=== PATIENT | female | born 1965 | race Hispanic/Latino ===

== ENCOUNTER 2017-06-21 02:11 | Observation (INO) | payer BC ==
[~2017-06-21] VITALS: Ht 157.5 cm; Wt 73.3 kg
[~2017-06-21 02:11] MED LIST: CALC-1038 PO; CEPH500B PO; TYL3 PO
[2017-06-21 03:19] LABS: BASOPHILS % (AUTO) 0.5 % (0.0-5.0); EOSINOPHILS % (AUTO) 1.2 % (0.0-8.0); LYMPHOCYTES % (AUTO) 17.5 % (21.0-51.0); MEAN CORPUSCULAR HEMOGLOBIN 27.1 pg (27.0-33.0); MEAN CORPUSCULAR HGB CONC 33.2 g/dL (32.0-36.0); MEAN CORPUSCULAR VOLUME 81.6 fL (79-99); MONOCYTES % (AUTO) 4.6 % (3.0-13.0); NEUTROPHILS % (AUTO) 76.2 % (40.0-77.0); PLATELET COUNT (AUTO) 240 K/uL (130-400); RED BLOOD CELL COUNT(AUTO) 4.78 MIL/uL (4.00-5.50); RED CELL DISTRIBUTION WIDTH 14.4 % (11.0-15.5); WHITE BLOOD COUNT (AUTO) 11.7 K/uL (4.8-10.8)
[2017-06-21 03:23] LABS: APPEARANCE,URINE Clear (CLEAR); BILIRUBIN,URINE Negative (NEGATIVE); COLOR,URINE Yellow (YELLOW); GLUCOSE, URINE (UA) Negative (NEGATIVE); KETONES,URINE Negative (NEGATIVE); LEUKOCYTE ESTERASE ,URINE Negative (NEGATIVE); NITRATE,URINE Negative (NEGATIVE); OCCULT BLOOD,URINE Trace (NEGATIVE); PROTEIN,URINE Negative (NEGATIVE); UROBILINOGEN,URINE 0.2 mg/dL (0.2-1.0)
[2017-06-21 03:25] LABS: CREATININE 0.7 mg/dL (0.5-1.5); POTASSIUM 3.9 mmol/L (3.5-5.1)
[2017-06-21 03:30] LABS: ALBUMIN 3.3 g/dL (3.5-5.0); BILIRUBIN,TOTAL 0.4 mg/dL (0.2-1.0); TOTAL PROTEIN, SERUM 6.9 g/dL (6.0-8.3)
[2017-06-21] MEDS ORDERED: ISOVUE-370 50ML VIAL IV ONE (03:32)
[2017-06-21 03:38] LABS: BACTERIA,URINE Few /HPF (None Seen); WBC,URINE 0-1 /HPF (0-1)
[2017-06-21] MEDS ORDERED: SODIUM CHLORIDE 0.9% 1000ML 1,000 ML IV ONE ×2 (04:08→07:37)
[2017-06-21] MEDS ORDERED: MAGNESIUM 2GM PREMIX 50ML 50 ML IV ONE (04:08)
[2017-06-21] MEDS ORDERED: ONDANSETRON HCL 4 MG/2 ML VIAL IV PRN (05:30)
[2017-06-21] MEDS ORDERED: METRONIDAZOLE 500 MG TABLET PO SCH (05:30)
[2017-06-21] MEDS ORDERED: ACETAMINOPHEN 325 MG TAB PO PRN ×2 (05:30)
[2017-06-21] MEDS ORDERED: HYDRALAZINE HCL 20 MG/ML VIAL IV PRN (05:30)
[2017-06-21 06:28] LABS: HEMOGLOBIN A1C 5.7 % (4.0-6.0)
[2017-06-21] MEDS ORDERED: SODIUM CHLORIDE 0.9% 1000ML 1,000 ML IV SCH (06:30)
[2017-06-21] MEDS ORDERED: POTASSIUM CHLORIDE 10% ELIXIR 20 MEQ/15 ML UDCUP PO PRN (06:30)
[2017-06-21] MEDS ORDERED: GLUCAGON 1MG KIT 1 MG ML IM PRN (06:30)
[2017-06-21] MEDS ORDERED: BUTALB/ACETAMINOPHEN/CAFFEINE 1 EACH TABLET PO PRN (06:30)
[2017-06-21] MEDS ORDERED: DEXTROSE 50%-WATER 50 ML DISP.SYRIN IV PRN (06:30)
[2017-06-21] MEDS ORDERED: POTASSIUM CHLORIDE 20MEQ/100ML 100 ML IV PRN (06:30)
[2017-06-21] MEDS ORDERED: LIDOCAINE HCL-MPF 1% 2ML VIAL IVP PRN (06:30)
[2017-06-21] MEDS ORDERED: POTASSIUM CHLORIDE 20 MEQ ERTAB PO PRN (06:30)
[2017-06-21 06:37] LABS: THYROID STIMULATING HORMONE 6.53 uIU/mL (0.36-3.74)
[2017-06-21] MEDS ORDERED: METRONIDAZOLE 500MG/100ML BAG 100 ML ONE (07:37)
[2017-06-21] MEDS ORDERED: GADOBENATE DIMEGLUMINE 20 ML IV ONE (07:57)
[2017-06-21] MEDS ORDERED: CEFEPIME 2GM+NS 100ML 100 ML IV SCH (09:00)
[2017-06-21] MEDS ORDERED: CEFEPIME HCL 2 GM VIAL IVP SCH (09:00)
[2017-06-21] MEDS ORDERED: PANTOPRAZOLE SODIUM 40 MG TABLET.DR PO SCH (09:00)
[2017-06-21] MEDS ORDERED: PANTOPRAZOLE SODIUM 40 MG TABLET.DR PO ONE (09:24)
[2017-06-21] MEDS ORDERED: CEFEPIME HCL 1 GM VIAL ONE (09:24)
[2017-06-21 12:00] VITALS: BP 133/73
== END 2017-06-21 16:00 | disposition home or self-care (01) ==
LOC: EDH 02:11 → EDHIP 05:29 → 3BH 12:08
PROVIDERS: ADMIT Family Medicine; ATTEND Family Medicine
DX: R55 Syncope and collapse (principal); E83.42 Hypomagnesemia; D72.829 Elevated white blood cell count, unspecified; E86.0 Dehydration; E88.09 Other disorders of plasma-protein metabolism, not elsewhere classified; E89.0 Postprocedural hypothyroidism; R51 Headache; Z83.3 Family history of diabetes mellitus
CPT/HCPCS: 36415; 70470; 70553; 71045; 80053; 80061; 81001; 82550; 83036; 83735; 84443; 84484; 85025; 87040 ×2; 87088; 93005; 93880; 99285; A9577; G0378 ×11; J0692 ×2; J3475; J3490; J7030 ×2; Q9967

== ENCOUNTER → 2020-11-05 | Outpatient (CLI) | payer BC ==
[~2020-11-05] VITALS: Ht 157.5 cm; Wt 76.7 kg
[~2020-11-05] MED LIST changes: +REGADENOSON 0.4 MG/5 ML PF SYG IVP SCH
== END | disposition home or self-care (01) ==
LOC: SHCH 08:16
PROVIDERS: ATTEND Internal Medicine Cardiovascular Disease
DX: R07.9 Chest pain, unspecified (principal)
CPT/HCPCS: 78452; 93017; 96374; A9500 ×2; J2785

== ENCOUNTER → 2022-11-19 | Outpatient (CLI) | payer BC ==
[~2022-11-19] MED LIST changes: +GADOTERATE MEGLUMINE 10 MMOL/20 ML VIAL IV ONE; -REGADENOSON 0.4 MG/5 ML PF SYG IVP SCH
== END | disposition home or self-care (01) ==
LOC: RAH 08:42
PROVIDERS: ATTEND Family Medicine
DX: M47.26 Other spondylosis with radiculopathy, lumbar region (principal)
CPT/HCPCS: 72158; A9575

== ENCOUNTER 2024-03-20 11:07 | Emergency (ER) | payer BC ==
[~2024-03-20] VITALS: Ht 157.5 cm; Wt 74.8 kg
[~2024-03-20 11:07] MED LIST changes: -GADOTERATE MEGLUMINE 10 MMOL/20 ML VIAL IV ONE
--- NOTE | 2024-03-20 11:25 | ERN ---
ED Note History of Present Illness Stated Complaint: HEADACHE, HYPERTENSION Chief Complaint: Hypertension Time Seen by MD: 11:09 Dictation: 58-year-old female presents to the ED for evaluation of headache onset 2:00 a.m. today. Patient reports fever, chills, dizziness, back pain and shortness a breath, but denies any sore throat, cough or any other associated symptoms at this time. Patient had a blood pressure of 163/89 at home. History of thyroid cancer. No other medical or surgical history mentioned. Allergies: Coded Allergies: No Known Drug Allergies (Unverified Allergy, Unknown, 06/15/17) Home Meds Active Scripts Butalb/Acetaminophen/Caffeine (Fioricet) 50 Mg-325 Mg-40 Mg Tab, 1 TAB PO QID PRN for headache for 10 Days, #30 TAB Prov:RISAJG Dave SCHWAB 03/20/24 Reported Medications Calcium Carbonate (Calcium) 500 Mg Tablet, 1000 MG PO TID, TAB 06/18/17 Cephalexin Monohydrate (Keflex) 500 Mg Cap, 500 MG PO BID, CAP 06/18/17 Acetaminophen with Codeine (Tylenol with Codeine #3) 1 Tab Tab, 1 TAB PO Q4H for PAIN LEVEL 4 TO 6, TAB 06/18/17 Past Medical History Past Medical History: Hypothyroid Surgical History: Other Surgical History Other: THYROIDECTOMY Review of System Dictation Constitutional: Positive for fever, chills negative for weight loss Eyes: Negative for injury, pain,redness, and discharge ENT: Negative for injury,pain or swelling Cardiovascular: Negative for chest pain, palpitations, and edema Respiratory: Positive for shortness a breath negative for cough, and wheezing, Abdomen/GI: Negative for abdominal pain, nausea, vomiting, diarrhea, and constipation Back: Positive for back pain : Negative for injury, bleeding and discharge MS/Extremity: Negative for injury and deformity Skin: Negative for rash, and discoloration Neuro: Positive for headache, dizziness weakness, numbness, tingling, and seizure Psych: Negative for suicide ideation, homicidal ideation, and hallucinations Initial Vital Sign VS Vital Signs Date Time Temp Pulse Resp B/P (MAP) Pulse Ox O2 Delivery O2 Flow Rate FiO2 03/20/24 11:08 100.0 114 14 130/71 95 Room Air 0 Physical Exam Dictation General: awake, alert, NAD Head/Face: Normocephalic, atraumatic Eyes: PERRL, EOMI, vision at baseline ENT: oral cavity clear, TMs clear, no signs of infection Neck: Trachea midline, supple, no nuchal rigidity Cardiovascular: RRR, normal S1/S2, No MRGs, no JVD Respiratory: CTAB, no respiratory distress, No rales or wheezes Abdomen: Soft, non-tender, non-distended, normal bowel sounds, no guarding or rebound. Skin: Warm, dry, normal turgor, no rash MS/Extremity: Pulses equal, no cyanosis, neurovascular intact, FROM Neuro: COAx4, GCS 15, strength 5/5, CN 2-12 intact, normal cerebellar exam, normal gait, Psych: Normal behavior, mood, and affect normal Results (Laboratory/Radiology) Laboratory/Radiology Laboratory Tests Test 03/20/24 11:37 White Blood Count 5.6 K/uL (4.8-10.8) Red Blood Count 5.27 MIL/uL (4.00-5.50) Hemoglobin 14.0 g/dL (12.0-16.0) Hematocrit 42.0 % (36-48) Mean Corpuscular Volume 79.7 fL (79-99) Mean Corpuscular Hemoglobin 26.6 pg (27.0-33.0) L Mean Corpuscular Hemoglobin Concent 33.3 g/dL (32.0-36.0) Red Cell Distribution Width 14.3 % (11.0-15.5) Platelet Count 177 K/uL (130-400) Mean Platelet Volume 10.6 fL (7.5-10.5) H Immature Granulocyte % (Auto) 1.1 % (0-1) H Neutrophils (%) (Auto) 86.7 % (40.0-77.0) H Lymphocytes (%) (Auto) 6.1 % (21.0-51.0) L Monocytes (%) (Auto) 5.4 % (3.0-13.0) Eosinophils (%) (Auto) 0.2 % (0.0-8.0) Basophils (%) (Auto) 0.5 % (0.0-5.0) Neutrophils # (Auto) 4.8 K/uL (1.8-7.7) Lymphocytes # (Auto) 0.3 K/uL (1.0-4.8) L Monocytes # (Auto) 0.3 K/uL (0.1-1.0) Eosinophils # (Auto) 0.01 K/uL (0.00-0.70) Basophils # (Auto) 0.03 K/uL (0.00-0.20) Absolute Immature Granulocyte (auto 0.06 K/uL (0-1) Nucleated Red Blood Cells 0.0 % (0.0-0.19) White Cell Morphology Comment See comments Sodium Level 141 mmol/L (136-145) Potassium Level 3.6 mmol/L (3.5-5.1) Chloride Level 104 mmol/L (101-111) Carbon Dioxide Level 31 mmol/L (21-32) Blood Urea Nitrogen 9 mg/dL (7-18) Creatinine 0.7 mg/dL (0.5-1.0) Glomerular Filtration Rate Calc 99 mL/min (>90) Random Glucose 118 mg/dL (70-105) H Total Calcium 9.0 mg/dL (8.5-10.1) Total Creatine Kinase 60 U/L (21-232) # Troponin I High Sensitivity 6.5 ng/L (4-50) ED Course ED Course Orders Procedure Category Date Status Time Cardiac Panel LAB 03/20/24 Complete 11:26 Cbc With Differential LAB 03/20/24 Complete 11:26 Basic Metabolic Panel LAB 03/20/24 Complete 11:26 0.9%Nacl 1000ml (Ns PHA 03/20/24 Complete 1000ml) 11:30 Ct Head/Brain W/O CT 03/20/24 Resulted Contrast 11:26 12 Lead Ekg Tracing- EKG 03/20/24 Logged Technical 11:26 Ketorolac PHA 03/20/24 Complete Tromethamine 15mg/Ml 11:30 Acetaminophen 500mg PHA 03/20/24 Complete Tab (Tylenol 500mg T 11:30 Current Medications Medications (Trade) Dose Ordered Sig/Radah Route PRN Reason Start Time Stop Time Status Last Admin Dose Admin Acetaminophen (TYLenol 500MG TAB) 1,000 mg ONCE ONCE PO 03/20/24 11:30 03/20/24 11:31 DC 03/20/24 11:59 Ketorolac Tromethamine (toRADol) 15 mg ONCE ONCE IV 03/20/24 11:30 03/20/24 11:31 DC 03/20/24 12:00 Sodium Chloride 1,000 ml @ 0 mls/hr ONCE ONCE IV 03/20/24 11:30 03/20/24 11:31 DC 03/20/24 12:00 Vital Signs Date Time Temp Pulse Resp B/P (MAP) Pulse Ox O2 Delivery O2 Flow Rate FiO2 03/20/24 11:08 100.0 114 14 130/71 95 Room Air 0 Medical Decision Making MDM CC: EISENBERG, dizziness, documented HTN Comorbidities: Differential diagnosis: HTN, migraine, headache, stroke, brain bleed, etc. CBC: no leukocytosis, L shift. No anemia. BMP: stable. CK normal. troponin stable. Clinical exam: unremarkable. 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 Finger to nose normal. PERRL, EOMI. Neuro & cardiac exam normal. EKG: NSR rate 104, normal axis, good RWP, intervals stable. NO STEMI. Interpreted by me. CT head per my independent interpreation: No acute bleed or major abnormalities. Patient recieved 1L NS, IV toradol, PO tylenol in ED. Patient reports improvement of symptoms. Likely bengign headache. BP has been stable in ED. No signs of brain bleed, stroke, or infection. Low suspicion for SAH. Will DC to PTP f/u. Will give prescription for fioricet. MDM: Differential diagnosis: Migraine headache, dizziness, viral syndrome Previous outside records reviewed: Old ER visits. Need for hospitalization: Patient does not meet criteria for hospitalization. Need for emergency major/minor surgery: No Patient's prior external medical records from other ER visits were reviewed by me as indicated. Prior testing and results from previous visits were reviewed. Prior tests were taken into account with medical decision making and resource utilization, independent historian/historians were used to obtain complete medical history. I independently interpreted the test that were performed, results were reviewed by me and considered findings on radiology if ordered. Medical management and examination interpretation discussions were had by me with other qualified healthcare professionals as indicated for the patient's care. DX & DISP Disposition: Discharge Departure Impression: Primary Impression: Headache Condition: Stable Scripts Butalb/Acetaminophen/Caffeine (Fioricet) 50 Mg-325 Mg-40 Mg Tab 1 TAB PO QID PRN for headache for 10 Days, #30 TAB Prov: JG CROWELL DO 03/20/24 Additional Instructions: Your symptoms are consistent with a benign headache. The CT scan of your brain is unremarkable. The EKG is normal. Your blood pressure has been stable here in the ED. Your labwork.(CBC, CK, BMP, troponin) is unremarkable. You received IV fluids, IV toradol, and oral tylenol in the ED. I've prescribed fioricet. You can take 1 tab every 4 hours as needed for headache. Please follow up with your primary doctor. Return to the ED as needed. Referrals: SHALINI CANADA DO (PCP) I have reviewed, & agreed with my scribe's, documentation. (Entered by Nora Hillman, acting as a scribe for Dr. Crowell) I personally scribed for JG CROWELL DO ([email or web address]) on 03/20/24 at 11:25. Electronically submitted by Nora Hillman ([email or web address]). JG CROWELL DO Mar 20, 2024 11:25
[2024-03-20 11:46] LABS: BASOPHILS # (AUTO) 0.03 K/uL (0.00-0.20); BASOPHILS % (AUTO) 0.5 % (0.0-5.0); EOSINOPHILS # (AUTO) 0.01 K/uL (0.00-0.70); EOSINOPHILS % (AUTO) 0.2 % (0.0-8.0); IMMATURE GRANULOCYTE ABSOLUTE 0.06 K/uL (0-1); LYMPHOCYTES # (AUTO) 0.3 K/uL (1.0-4.8); LYMPHOCYTES % (AUTO) 6.1 % (21.0-51.0); MEAN CORPUSCULAR HEMOGLOBIN 26.6 pg (27.0-33.0); MEAN CORPUSCULAR HGB CONC 33.3 g/dL (32.0-36.0); MEAN CORPUSCULAR VOLUME 79.7 fL (79-99); MONOCYTES # (AUTO) 0.3 K/uL (0.1-1.0); MONOCYTES % (AUTO) 5.4 % (3.0-13.0); NEUTROPHILS # (AUTO) 4.8 K/uL (1.8-7.7); NEUTROPHILS % (AUTO) 86.7 % (40.0-77.0); PLATELET COUNT (AUTO) 177 K/uL (130-400); RED BLOOD CELL COUNT(AUTO) 5.27 MIL/uL (4.00-5.50); RED CELL DISTRIBUTION WIDTH 14.3 % (11.0-15.5); WHITE BLOOD COUNT (AUTO) 5.6 K/uL (4.8-10.8)
[2024-03-20] MEDS: acetaMINOPHEN 500 MG TABLET PO ONE (11:59)
[2024-03-20] MEDS: ketOROlac 15MG/ML VIAL (15MG/ML) IV ONE (12:00)
[2024-03-20] MEDS: 0.9%NACL 1000ML 1,000 ML IV ONE (12:00)
[2024-03-20 12:03] LABS: CREATININE 0.7 mg/dL (0.5-1.0); POTASSIUM 3.6 mmol/L (3.5-5.1)
--- NOTE | 2024-03-20 12:27 | HMCIMG ---
CT HEAD/BRAIN W/O CONTRAST INDICATION: headache TECHNIQUE: CT HEAD/BRAIN W/O CONTRAST. CT was performed with one or more of the following dose reduction techniques: Automated exposure control, adjustment of the mA and/or kV according to the patient's size, or use of the iterative reconstruction technique. Comparison: 06/21/2018 FINDINGS: The ventricles and extra ventricular CSF spaces are within normal limits. No mass effect, midline shift or herniation. No extra axial collection. No acute intracranial bleed. The visualized paranasal sinuses and mastoid air cells are normally aerated. IMPRESSION: No acute intracranial findings.
[2024-03-20] MEDS ORDERED: FIORIT PO (12:39)
[2024-03-20 13:27] VITALS: BP 128/67; PULSE 75; RESP 16; TEMP 98.1; O2SAT 100
--- NOTE | 2024-03-20 17:52 | EKG ---
[facility] Test Date: 2024-03-20 Test Time: 11:56:25 Pat Name: ROSA ELENA KING Department: ED Room: Gender: Female Search Director: [id number] : 1965 Requested By: JG LORD Order Number: [id number] Reading MD: Measurements Intervals Josephine Rate: 104 P: 43 TX: 162 QRS: 48 QRSD: 78 T: 25 QT: 331 QTc: 435 Interpretive Statements Sinus tachycardia No previous ECG available for comparison Please click the below link to view image of tracing.
== END 2024-03-20 13:36 | disposition home or self-care (01) ==
LOC: EDH 11:07
DX: R51.9 Headache, unspecified (principal); R50.9 Fever, unspecified; R42 Dizziness and giddiness; E03.9 Hypothyroidism, unspecified; I10 Essential (primary) hypertension; Z79.899 Other long term (current) drug therapy; Z90.89 Acquired absence of other organs; Z98.890 Other specified postprocedural states
CPT/HCPCS: 99284; 96374; 70450; 96361; 82550; 84484; 80048; 85025; 36415; 93005; J7030; J1885